=== PATIENT | male | born 1965 | race Caucasian/White ===

== ENCOUNTER → 2016-03-16 | Outpatient (CLI) | payer MEDICAID ==
--- NOTE | 2016-03-16 18:41 | DX ---
Upright PA and Lateral Chest, 2 Views Total, at 5:47 p.m. Clinical History: 50-year-old male with a cough for one month, and some shortness of breath. ICD 10 Diagnostic Code: R05. Comparison Study: Chest, dated July 27, 2013. Findings: The lungs are clear except for mild peribronchial thickening. The cardiac and mediastinal s ilhouette size is normal. There is no focal alveolar consolidation, pleural effusion, peripheral inte rstitial edema, or pneumothorax. The osseous structures are age-appropriate, with midthoracic degener ative change. The trachea is midline. The patient's arms obscure a portion of the anterior retrostern al space on the lateral view. Impression: Features are consistent with reactive airways' disease and/or a virally-mediated bronchit is, with no focal pneumonia identified.
== END ==
LOC: FLAB 17:23
PROVIDERS: ATTEND Internal Medicine
DX: J45.909 Unspecified asthma, uncomplicated (principal)